=== PATIENT | female | born 1960 | race Caucasian/White ===

== ENCOUNTER → 2019-02-21 | Outpatient (CLI) | payer OTHER ==
[~2019-02-21] VITALS: Ht 165.1 cm; Wt 79.5 kg
[~2019-02-21] MED LIST: AMBIEN 5 MG TABL5 M1 PO; ARIMIDEX PO; BUMETANIDE0.25 MG/1 PO; CELEBREX 200 M200 M1 PO; CELEXA20 MG PO; LORAZEPAM 22 MG/1 ML PO; NORVASC10 MG PO; PROTONIX40 M4 PO; SPIRONOLACTONE25 M1 PO; VITAMIN D3400 UNIT PO; ZANAFLEX4 M1 PO
[2019-02-21 09:37] LABS: HEMATOCRIT 46.7 % (37.0-47.0); HEMOGLOBIN 16.3 gm/dL (12.0-15.0); MCH 33.6 pg (26.0-34.0); MCHC 34.9 g/dL (28.0-37.0); MCV 96.4 fL (80.0-100.0); MPV 8.1 fl. (7.2-11.1); RBC 4.84 mil/uL (4.20-5.00); RDW-CV 12.3 % (10.5-14.5)
[2019-02-21 12:49] VITALS: BP 123/51
[2019-02-21 13:26] VITALS: BP 141/81
--- NOTE | 2019-02-25 18:06 | PATH ---
[address] [address] PATHOLOGY RPT PROCEDURE Name: ANABELLA WALL Room: [facility].#: [id number] Admission: 02/21/19 Date of : 58 Discharge: Report #: [id number] Path Case #: [id number] [facility] Accession Number: [id number] . 01 Material submitted: . breast - SOFT TISSUE MASS ANTERIOR TO STERNUM,LEFT BREAST. Modifiers: left . 01 Clinical history: . Breast cancer surgery at [facility] . 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 See comment. (LOWELL:pit; 02/25/2019) QTP 02/25/2019 1148 Local . 02 Comment: The cores show abundant nests of neoplastic cells,typical of glanular cell tumor, consisting of monotonous ovoid nuclei with abundant eosinophilic vaguely granular cytoplasm without necrosis or significant mitotic activity. Fragments of benign skeletal muscle are also present. Properly controlled immunohistochemical stains performed on A1 show the neoplastic cells to have the following results, supporting the diagnosis: S100: Positive; skeletal muscle negative Desmin: Negative; highlights skeletal muscle . Reviewed with Dr. Samuel Driscoll who agrees with the diagnosis. (LOWELL:pit; 02/25/2019) . 02 Electronically signed: . Armando Yanes MD, Pathologist NPI- [id number] . 01 Gross description: . Received in formalin labeled "Anabella Wall, soft tissue mass anterior to sternum," are 6 distinct needle cores of yellow-durand fibrofatty tissue ranging from 0.6-1.7 cm in length and measuring less than 0.1 cm in diameter. The tissue is submitted in its entirety in cassette A1-A3. The cold ischemic time is less than 1 minute. The total formalin fixation time is 11 hours and 10 minutes. Due to the minute and wispy nature of some of the specimens, they may not survive processing. (TSD; 02/21/2019) TOB/TOB 02/21/2019 1914 Local . 02 Pathologist provided ICD-10: D24.2 . 02 [place] [address] PATHOLOGY RPT PROCEDURE Name: ANABELLA WALL Room: [facility]#: [id number] Admission: 02/21/19 Date of : 58 Discharge: Report #: [id number] Path Case #: [id number], [id number] Specimen Comment: A courtesy copy of this report has been sent to Specimen Comment: [phone]. Specimen Comment: Report sent to / DR CHAO Performed at: [address] [facility] [address], [place], [place] [id number] MD Jose Jenkins MD Phone: [phone] Performed at: 02 [facility] [address] [place] [address] [address], [place], [place] [id number] MD Armando Yanes MD Phone: [phone]
== END | disposition home or self-care (01) ==
LOC: M.INT 08:14 → EDBD 09:00
PROVIDERS: Radiology Diagnostic Radiology
DX: D21.3 Benign neoplasm of connective and other soft tissue of thorax (principal); I10 Essential (primary) hypertension; K21.9 Gastro-esophageal reflux disease without esophagitis; F17.210 Nicotine dependence, cigarettes, uncomplicated; Z79.01 Long term (current) use of anticoagulants; Z85.3 Personal history of malignant neoplasm of breast; Z79.899 Other long term (current) drug therapy